=== PATIENT | male | born 1965 | race Caucasian/White ===

== ENCOUNTER → 2018-11-26 | Outpatient (CLI) | payer BC ==
[~2018-11-26] MED LIST: ISOVUE-370 76% 100ML VIAL (Q9967) As Ordered ONE
--- NOTE | 2018-11-26 16:03 | REP ---
CT of the abdomen and pelvis with IV contrast, without bowel contrast for renal cyst evaluation: There are no comparison studies. There is a large right renal cyst measuring 10.9 cm craniocaudad by 7.3 cm AP by 11.4 cm transversely. This cyst is combination of cortical and parapelvic because of its large size. This is a Bosniak type 1 cyst. There is a second right renal cyst. This is a parapelvic cyst in the upper pole measuring 2.1 cm. This is a Bosniak type 1 cyst. The second as this may communicate with the larger cyst. There are no left renal cysts. There are no renal masses on the left on the right. There are no renal calculi. There is no hydronephrosis. The ureters are not dilated. There are no ureteral calculi. The visualized lung freeman are unremarkable. The hepatic parenchyma, gallbladder, pancreas and spleen are normal size and unremarkable except for multiple splenic calcified granulomas. The adrenals are unremarkable. The abdominal aorta is unremarkable. There is no retroperitoneal adenopathy or mass. The bowel and mesentery are unremarkable. Pelvis: There is wall thickening of the descending colon and sigmoid colon compatible with colitis in the appropriate clinical setting. There is no ascites. There is no adenopathy. The bladder is unremarkable. Impression: Right renal cysts as described. Splenic calcified granulomas. Electronically Signed by Manny Mart MD 11/26/2018 03:54 P
== END ==
LOC: M RAD 09:51
PROVIDERS: ATTEND Urology
DX: N28.1 Cyst of kidney, acquired (principal)